=== PATIENT | female | born 1955 | race American Indian/Alaskan Native ===

== ENCOUNTER 2016-11-08 18:23 | Emergency (ER) | payer MEDICAID, OTHER ==
[2016-11-08 18:41] VITALS: BP 171/79
--- NOTE | 2016-11-08 19:04 | EDM.PDOC ---
ED HPI ENT - General Chief Complaint: ENT Problem Stated Complaint: TOOTH PAIN Time Seen by Provider: 11/08/16 19:03 Source of Information: Reports: Patient History Limitations: Reports: No limitations - History of Present Illness INITIAL COMMENTS - FREE TEXT/NARRATIVE: 61-year-old female [place] ancestry presents to the ED with dental infection and pain. She's had problems with this tooth for several times in the past and is yet to have it extracted. Currently she has a infected left lower tooth that is broken off for decayed down to the gingiva margin. She receives care in [facility]. No noted fever. Has pain along the left mandible. She displaced a course of Pen-Vee K and tramadol 100 mg every 6 hours when necessary about a week ago. Symptom Onset Date: 11/05/16 Timing/Duration: Reports: Day(s):, Getting worse, Gradual onset Severity: moderate Location: Reports: mouth (Left lower molar tooth.) Quality: Reports: Ache, Throbbing Improves with: Reports: None Worsens with: Reports: Other (Doing.) Associated Symptoms: Reports: loss of appetite (Can eat as well due to the constant pain.). 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, NSAIDS (Motrin) - Related Data Allergies/ADRs: Allergies Allergy/AdvReac Type Severity Reaction Status Date / Time narcotics Allergy Nausea and Uncoded 11/08/16 18:42 Vomiting Home Meds: Home Meds Aspirin 81 mg PO BEDTIME 11/08/16 [History] Ciprofloxacin HCl [Cipro] 500 mg PO BID #20 tablet 11/08/16 [Rx] Hydrochlorothiazide 25 mg PO DAILY 11/08/16 [History] Ibuprofen [Motrin] 800 mg PO TID 11/08/16 [History] Lisinopril [Prinivil] 10 mg PO DAILY 11/08/16 [History] Omeprazole Magnesium [Prilosec Otc] 20 mg PO DAILY 11/08/16 [History] traMADol [Ultram] 100 mg PO Q6H #24 tablet 11/08/16 [Rx] traMADol [Ultram] 100 mg PO TID 11/08/16 [History] Past Medical History Cardiovascular History: Reports: Hypertension 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 History: Reports: GERD 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: , Other (see below) Other OB/BYN History: precancerous cells Musculoskeletal History: Reports: Arthritis Psychiatric History: Reports: Depression Hematologic History: Reports: Other (see below) Other Hematologic History: baby aspirin Social & Family History - Family History Family Medical History: Noncontributory - Tobacco Use Smoking Status *Q: Current Every Day Smoker Years of Tobacco use: 40 Packs/Tins Daily: 0.2 - Caffeine Use Caffeine Use: Reports: Coffee, Tea - Recreational Drug Use Recreational Drug Use: No - Living Situation & Occupation Living situation: Reports: single Occupation: unemployed ED ROS ENT - Review of Systems Review Of Systems: See Below Constitutional: Reports: decreased appetite. Denies: fever, chills, malaise, weakness, fatigue, weight loss HEENT: Reports: Dental pain (Left lower lower more.) Respiratory: Reports: No Symptoms Cardiovascular: Reports: No symptoms Endocrine: Reports: no symptoms GI/Abdominal: Reports: No symptoms : Reports: no symptoms Musculoskeletal: Reports: no symptoms Skin: Reports: no symptoms Neurological: Reports: No Symptoms Psychiatric: Reports: No symptoms Hematologic/Lymphatic: Reports: no symptoms Immunologic: Reports: no symptoms ED EXAM, ENT - Physical Exam Exam: See Below Exam Limited By: No limitations General Appearance: alert, WD/WN, mild distress Ears: normal TMs Mouth/Throat: Dental pain (Left lower second molar is), Dental tenderness ( badly decayed and broken off of the gingiva margin. The surrounding gingiva is markedly erythematous and swollen without any abscess formation. left lower second molar. Association associated pain in the mandible as well. ) Head: atraumatic, normocephalic Neck: normal inspection, supple, non-tender, full range of motion Respiratory/Chest: no respiratory distress, lungs clear, normal breath sounds, no accessory muscle use Cardiovascular: normal peripheral pulses, regular rate, rhythm, no edema, no JVD , no murmur Course - Vital Signs Last Recorded V/S: Last Vital Signs Temp 36.7 C 11/08/16 18:32 Pulse 79 11/08/16 18:32 Resp 18 11/08/16 18:32 BP 171/79 H 11/08/16 18:32 Pulse Ox 97 11/08/16 18:32 - Radiology Interpretation Free Text/Narrative:: 61-year-old female with dental pain left lower molar tooth. It is broken off at the gingiva margin badly decayed with surrounding gingival swelling without an obvious abscess. No doubt the source for pain. Associated mild left submandibular adenopathy. Treated with Cipro 500 mg twice daily for 10 days and placed on tramadol 100 mg every 6 hours x24 tablets for pain relief. She doesn' t follow up with dentist on [place] to have it extracted .I'll have to be extracted by an oral surgeon. Departure - Departure Time of Disposition: 19:10 Disposition: Home, Self-Care 01 Condition: fair Clinical Impression: Infected dental caries Prescriptions: Ciprofloxacin HCl [Cipro] 500 mg PO BID #20 tablet traMADol [Ultram] 100 mg PO Q6H #24 tablet Instructions: Dental Caries Referrals: PCP,Not In Area [Primary Care Provider] - Forms: ED Department Discharge Additional Instructions: Evaluation in the emergency department tonight in regards to dental infection causing pain in the left lower mouth and jaw. The molar tooth is decayed down to the gingiva margin with marked swelling of the surrounding tissues indicating infection. Treatment is antibiotic Cipro 500 mg twice daily for the next 10 days. Tramadol 100 mg every 6 hours for relief of pain as needed. Of course followup with dentist when able to have the tooth extracted. We'll likely have to be extracted by an oral surgeon because it is broken off to below the gum margin. Back improvement over the next 48 hours as the antibiotic start to work well. May continue to use Aleve 2 tablets every 8 hours and to reduce pain and inflammation as well.
== END 2016-11-08 19:29 | disposition home or self-care (01) ==
LOC: JD.ED 18:23
DX: K02.9 Dental caries, unspecified (principal); K04.7 Periapical abscess without sinus; I10 Essential (primary) hypertension; K21.9 Gastro-esophageal reflux disease without esophagitis; M19.90 Unspecified osteoarthritis, unspecified site; F32.9 Major depressive disorder, single episode, unspecified; Z79.899 Other long term (current) drug therapy; F17.210 Nicotine dependence, cigarettes, uncomplicated; Z88.5 Allergy status to narcotic agent
CPT/HCPCS: 99282; 99283

== ENCOUNTER 2018-02-05 00:01 | Emergency (ER) | payer SELFPAY ==
[2018-02-05 00:10] VITALS: BP 147/80
[2018-02-05] MEDS: Penicillin V Potassium 500 MG Tab PO ONE (01:12)
--- NOTE | 2018-02-05 01:15 | EDM.PDOC ---
ED HPI GENERAL MEDICAL PROBLEM - General Chief Complaint: ENT Problem Stated Complaint: TOOTH PAIN FROM BROKEN TOOTH Time Seen by Provider: 02/05/18 00:29 Source of Information: Reports: Patient, Old Records History Limitations: Reports: No Limitations - History of Present Illness INITIAL COMMENTS - FREE TEXT/NARRATIVE: The patient states that she has had lower left dental pain since Friday, 2017. Review of prior medical records, however, indicates that the patient was seen in this ED on 11/08/[address] Mckinney, for the same complaint. He found that she had extensive decay to her second molar, with an associated infection. The patient was prescribed ciprofloxacin and 24 tablets of tramadol. When asked about this, the patient acknowledges that she has had this pain since August. She states that she has not been to a dentist since last fall, citing lack of insurance. The patient states that she has been taking several Tylenol, along with 1000 mg of ibuprofen twice a day, without adequate relief. No recent fever. Questionable oral drainage. The patient's PCP is in [place], however, the patient states that she is moving to this area. Left Lower Tooth/Teeth Pain Score (Numeric/FACES): 8 - Related Data Allergies Allergy/AdvReac Type Severity Reaction Status Date / Time narcotics Allergy Nausea and Uncoded 02/05/18 00:10 Vomiting Home Meds: Home Meds Aspirin 81 mg PO BEDTIME 11/08/16 [History] Hydrochlorothiazide 25 mg PO DAILY 11/08/16 [History] Ibuprofen [Motrin] 800 mg PO TID 11/08/16 [History] Lisinopril [Prinivil] 10 mg PO DAILY 11/08/16 [History] Omeprazole Magnesium [Prilosec Otc] 20 mg PO DAILY 11/08/16 [History] Naproxen 1 tab PO Q12H PRN #20 tablet 02/05/18 [Rx] Penicillin V Potassium 1 tab PO Q6HR #40 tab 02/05/18 [Rx] Past Medical History Cardiovascular History: Reports: Hypertension 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 History: Reports: GERD 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: Musculoskeletal History: Reports: Arthritis Psychiatric History: Reports: Depression Oncologic (Cancer) History: Reports: Cervix - Past Surgical History GI Surgical History: Reports: Cholecystectomy Female Surgical History: Reports: Hysterectomy, Salpingo-Oophorectomy Musculoskeletal Surgical History: Reports: Shoulder Surgery (right, arthroscopic ) Social & Family History - Family History Family Medical History: Noncontributory - Tobacco Use Smoking Status *Q: Current Every Day Smoker Years of Tobacco use: 45 Packs/Tins Daily: 0.7 - Caffeine Use Caffeine Use: Reports: None - Alcohol Use Alcohol Use History: No - Recreational Drug Use Recreational Drug Use: No - Living Situation & Occupation Living situation: Reports: , with Family (Granddaughter), Other (With a friend) Occupation: Unemployed ED ROS ENT - Review of Systems Review Of Systems: ROS reveals no pertinent complaints other than HPI. ED EXAM, ENT - Physical Exam Exam: See Below Exam Limited By: No Limitations General Appearance: Alert, WD/WN, No Apparent Distress Eye Exam: Bilateral Eye: Normal Inspection Ears: Normal External Exam, Normal Canal, Hearing Grossly Normal, Normal TMs Nose: Normal Inspection, Normal Mucousa, No Blood Mouth/Throat: Normal Inspection, Normal Gums, Normal Lips, Other (Tooth #16 absent. Teeth #17, 18 (the teeth of concern), with extensive decay to the gingiva, with associated gingival swelling. No pointing. Teeth #19, 20, 21 absent. Teeth #22, 23, 24 with extensive decay to the gingiva, without associated gingival swelling. Tooth #26 with advanced decay. Teeth #27, 28, 29, 30, 31, 32 absent.) Head: Atraumatic, Normocephalic Neck: Normal Inspection, Supple, Non-Tender, Full Range of Motion. No: Lymphadenopathy (L), Lymphadenopathy (R) Course - Vital Signs Last Recorded V/S: Last Vital Signs Temp 36.6 C 02/05/18 00:06 Pulse 55 L 02/05/18 00:06 Resp 18 02/05/18 00:06 BP 147/80 H 02/05/18 00:06 Pulse Ox 98 02/05/18 00:06 - Orders/Labs/Meds Meds: Medications Discontinued Medications Generic Name Dose Route Start Last Admin Trade Name Freq PRN Reason Stop Dose Admin Penicillin V Potassium 500 mg 02/05/18 01:06 02/05/18 01:12 Veetids PO 02/05/18 01:07 500 mg ONETIME ONE Administration - Re-Assessments/Exams Free Text/Narrative Re-Assessment/Exam: 02/05/18 01:06 On examination, the patient has a dental infection to teeth #17 and 18, plus advanced decay to teeth 22, 23, 24 and 26. There is no lymphadenopathy, and the patient does not have a fever. For tonight's purposes, I will start the patient on oral penicillin, however, I am not going to also give her naproxen, as she has been taking an excessive dose of ibuprofen. The patient was advised to stop taking ibuprofen, as she will be prescribed naproxen. I will prescribe a ten- day course each of penicillin and naproxen, and we will give the patient a list of local dentists. I emphasized the need for the patient to see a dentist as soon as possible. Departure - Departure Time of Disposition: 01:08 Disposition: Home, Self-Care 01 Condition: Good Clinical Impression: Dental infection, Dental decay - Discharge Information *PRESCRIPTION DRUG MONITORING PROGRAM REVIEWED*: Not Applicable *COPY OF PRESCRIPTION DRUG MONITORING REPORT IN PATIENT JANNA: Not Applicable Prescriptions: Penicillin V Potassium 1 tab PO Q6HR #40 tab Naproxen 1 tab PO Q12H PRN #20 tablet PRN Reason: Pain Instructions: Dental Abscess, [id number] Referrals: PCP,Not In Area [Primary Care Provider] - Forms: ED Department Discharge Additional Instructions: You were seen in the emergency room for lower left dental pain. On examination, you have extensive dental decay and infection of your lower left molars, as well as advanced dental decay of several of your front lower teeth, as well. You have been started on the antibiotic penicillin. Prescriptions for penicillin, as well as for the pain medicine naproxen, have been sent to the [facility], [address], [place] [employer]. Take one tablet of penicillin every 6 hours, starting this morning, , 06/2018. Finish the entire prescription unless told otherwise by a dentist. Take one tablet of naproxen, with food, every 12 hours, as needed for pain. A list of local dentists has been provided to you. It is imperative that you follow-up with a dentist within 10 days. If any other problems, please do not hesitate to return to the ER.
== END 2018-02-05 01:22 | disposition home or self-care (01) ==
LOC: JD.ED 00:01
DX: K04.7 Periapical abscess without sinus (principal); K02.9 Dental caries, unspecified; F17.210 Nicotine dependence, cigarettes, uncomplicated; Z79.82 Long term (current) use of aspirin; Z79.899 Other long term (current) drug therapy; I10 Essential (primary) hypertension; K21.9 Gastro-esophageal reflux disease without esophagitis; Z88.5 Allergy status to narcotic agent
CPT/HCPCS: 99282; A9270-GY

== ENCOUNTER 2018-04-12 17:46 | Emergency (ER) | payer SELFPAY ==
[2018-04-12 18:03] VITALS: BP 119/68
--- NOTE | 2018-04-12 18:20 | EDM.PDOC ---
ED HPI GENERAL MEDICAL PROBLEM - General Chief Complaint: ENT Problem Stated Complaint: TOOTH PAIN Time Seen by Provider: 04/12/18 17:55 Source of Information: Reports: Patient, Old Records (ED 11/08/2016, 02/05/2018) History Limitations: Reports: No Limitations - History of Present Illness INITIAL COMMENTS - FREE TEXT/NARRATIVE: Medical records indicate that the patient was seen in this ED on 11/08/2017 for lower left dental pain. She was found to have extensive decay to her second molar, with an associated infection. She was prescribed ciprofloxacin and 24 tablets of tramadol. The patient was then seen by me on 02/05/2018, again with a complaint of lower left dental pain. She was found to have an infection of of teeth #17 & 18, plus extensive decay of teeth #22, 23, 24, and 26. The patient was prescribed 10 day courses of penicillin and naproxen, and a list of local dentists was provided to her. The patient now returns, stating that she was seen at the [facility] in [place] recently. An appointment for her to see a dentist, to remove her remaining lower front teeth was made for this coming 04/17/2018. She was given a prescription for amoxicillin, which she filled and started taking yesterday. She states that she was given viscous lidocaine, but advised to take Tylenol or ibuprofen. She states that she is taking these medications in excess of recommended dosages, because they are not effective. Review of the [place] PMPi finds that over the past 3 years, the patient has received a total of 49 prescriptions by 35 different prescribers, from 16 different states, including [place], [place], [place], [place], [place], [place], [place], [place], [place], [place], [place], [place], [place], [place], [facility], and [place], plus 4 separate visits to [place]. Lower Tooth/Teeth Pain Score (Numeric/FACES): 7 - Related Data Allergies Allergy/AdvReac Type Severity Reaction Status Date / Time narcotics Allergy Nausea and Uncoded 02/05/18 00:10 Vomiting Home Meds: Home Meds Aspirin 81 mg PO BEDTIME 11/08/16 [History] Hydrochlorothiazide 25 mg PO DAILY 11/08/16 [History] Ibuprofen [Motrin] 800 mg PO TID 11/08/16 [History] Lisinopril [Prinivil] 10 mg PO DAILY 11/08/16 [History] Omeprazole Magnesium [Prilosec Otc] 20 mg PO DAILY 11/08/16 [History] Amoxicillin 250 mg PO TID 04/12/18 [History] metFORMIN [Glucophage XR] 500 mg PO BID 04/12/18 [History] Past Medical History Cardiovascular History: Reports: Hypertension 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 History: Reports: GERD 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: Musculoskeletal History: Reports: Arthritis Psychiatric History: Reports: Depression - Past Surgical History GI Surgical History: Reports: Cholecystectomy Female Surgical History: Reports: Hysterectomy, Salpingo-Oophorectomy Musculoskeletal Surgical History: Reports: Shoulder Surgery (right, arthroscopic ) Social & Family History - Family History Family Medical History: Noncontributory - Tobacco Use Smoking Status *Q: Current Every Day Smoker Years of Tobacco use: 45 Packs/Tins Daily: 0.7 - Caffeine Use Caffeine Use: Reports: Coffee, Soda, Tea - Alcohol Use Alcohol Use History: No - Recreational Drug Use Recreational Drug Use: No - Living Situation & Occupation Living situation: Reports: , with Family (Granddaughter), Other (With a friend) Occupation: Unemployed ED ROS ENT - Review of Systems Review Of Systems: ROS reveals no pertinent complaints other than HPI. ED EXAM, ENT - Physical Exam Exam: See Below Exam Limited By: No Limitations General Appearance: Alert, WD/WN, No Apparent Distress Eye Exam: Bilateral Eye: EOMI, Normal Inspection Ears: Normal External Exam, Normal Canal, Hearing Grossly Normal, Normal TMs Nose: Normal Inspection, Normal Mucousa, No Blood Mouth/Throat: Normal Lips, Other (Upper denture plate in place. Tooth #17, 18 decayed to the gingiva. Teeth #19, 20, 21 absent. Teeth #22, 23, 24 with extensive caries and associated gingival swelling, although no pointing seen. Tooth #26 with extensive lynn. Teeth #27, 28, 29, 30, 31, 32 absent.) Head: Atraumatic, Normocephalic Neck: Normal Inspection, Supple, Non-Tender, Full Range of Motion. No: Lymphadenopathy (L), Lymphadenopathy (R) Course - Vital Signs Last Recorded V/S: Last Vital Signs Temp 36.6 C 04/12/18 18:01 Pulse 68 09/16/18 18:01 Resp 20 04/12/18 18:01 BP 119/68 04/12/18 18:01 Pulse Ox 98 04/12/18 18:01 - Re-Assessments/Exams Free Text/Narrative Re-Assessment/Exam: 04/12/18 18:16 The patient presents with continued lower frontal dental pain. She started taking amoxicillin yesterday. She states that she has an appointment to see a dentist in 5 days, on 04/17/2018, but states that the Tylenol and ibuprofen that she has been taking is inadequate. She is demanding something stronger. I explained to the patient that this emergency department does not prescribe opioids for dental pain, and I recommended that she take an appropriate dose of either ibuprofen or Aleve. I suggested that she drink ice cold liquids, to help numb the gingiva, and advised her that her pain should decrease once the antibiotics start to decrease the local inflammation. The patient threatened that she would continue to take excessive doses of Tylenol if she did not get something stronger, which I advised against. The patient stated that she will simply return to this ED if I don't prescribe something her. I offered to provide for the patient a list of local dentists, one of whom she might be able to see prior to her current dental appointment on 04/17/2018. The patient stated that she would like that list. 04/12/18:19 Notified that the patient left the ED without waiting for her discharge instructions or the list of local dentists. This issue has been going on for years, yet it does not appear to be of importance to the patient. If the patient has the means to be able to travel around the country and [place] on numerous occasions, she would have the means to address her dental issues. I think it more likely that the patient is using her dental issue for secondary gain, specifically, to acquire opioids. Very clearly, the patient is drug-seeking, reflected by her demanding a stronger medication than she is currently taking, arguing with me when I explained that I am not a position to prescribe such a medication, attempting to use emotional blackmail by telling me that she would overdose on Tylenol and ibuprofen if I did not prescribe her something stronger, and implying that my resistance to prescribing something stronger was fruitless, as she would simply return to the ED and get a prescription from some other provider. Departure - Departure Time of Disposition: 18:19 Disposition: Eloped 07 Condition: Good Clinical Impression: Dentalgia, Drug-seeking behavior, Dental decay - Discharge Information *PRESCRIPTION DRUG MONITORING PROGRAM REVIEWED*: Yes *COPY OF PRESCRIPTION DRUG MONITORING REPORT IN PATIENT JANNA: Yes Referrals: PCP,None [Primary Care Provider] - Forms: ED Department Discharge Additional Instructions: You were seen in the emergency room for continued lower frontal dental pain. On examination, you have advanced decay of teeth 22, 23, 24, and 26, with local inflammation of your gums. We recommend that you continue to take the amoxicillin that you had already been prescribed. We recommend that you take [id number] ibuprofen, 3 to 4 tablets (600-800 mg) every 8 hours, with food, as needed for discomfort OR [id number] naproxen, 500 mg, every 12 hours, with food, as needed for discomfort. Be aware that taking dosages over this amount can be harmful to your kidneys. You may also take [id number] acetaminophen (Tylenol), 650 mg every 4 hours in addition to either ibuprofen or naproxen. You may continue to apply topical viscous lidocaine or Anbesol to the painful areas, as needed. We suggest that you drink ice cold fluids, which may help to numb your mouth. A list of local dentists has been provided to you. We recommend that you contact each of the dentists to see if you can be seen earlier than your current dental appointment on 04/17/2018. If any other problems, please do not hesitate to return to the ER.
== END 2018-04-12 18:33 | disposition left against medical advice (07) ==
LOC: JD.ED 17:46
DX: K02.9 Dental caries, unspecified (principal); I10 Essential (primary) hypertension; K21.9 Gastro-esophageal reflux disease without esophagitis; F17.210 Nicotine dependence, cigarettes, uncomplicated; Z88.8 Allergy status to other drugs, medicaments and biological substances; Z76.5 Malingerer [conscious simulation]; Z79.899 Other long term (current) drug therapy
CPT/HCPCS: 99283